=== PATIENT | male | born 1940 | race Two or more races ===

== ENCOUNTER 2023-09-21 15:48 | Outpatient (CLI) | payer OTHER | END 2023-09-21 15:49 | disposition home or self-care (01) | LOC: CSHULT 15:48 | PROVIDERS: ATTEND Family Medicine | DX: M79.89 Other specified soft tissue disorders (principal) | CPT/HCPCS: 93970 ==

== ENCOUNTER 2024-06-28 08:29 | Outpatient (CLI) | payer MEDICARE | END 2024-06-28 08:30 | disposition home or self-care (01) | LOC: CSHSLEEP 08:29 | PROVIDERS: ATTEND Allergy & Immunology | DX: G47.33 Obstructive sleep apnea (adult) (pediatric) (principal); R06.83 Snoring | CPT/HCPCS: 95811 ==

== ENCOUNTER 2025-07-17 09:26 | Outpatient (CLI) | payer MEDICARE | END 2025-07-17 09:27 | disposition home or self-care (01) | LOC: CSHULT 09:26 | PROVIDERS: ATTEND Nurse Practitioner Family | DX: D36.0 Benign neoplasm of lymph nodes (principal); R19.03 Right lower quadrant abdominal swelling, mass and lump | CPT/HCPCS: 76705; 93976 ==